=== PATIENT | female | born 1990 | race Caucasian/White ===

== ENCOUNTER 2017-07-04 08:17 | Emergency (ER) | payer MEDICAID ==
[2017-07-04] MEDS: DIPHENHYDRAMINE 50 MG INJ IV (09:10)
[2017-07-04] MEDS: KETOROLAC 15 MG INJ IV (09:10)
[2017-07-04] MEDS: METOCLOPRAMIDE 10 MG INJ IV (09:10)
[2017-07-04] MEDS: SOD CHLORIDE 0.9% 1,000 ML IV (09:10)
[2017-07-04 09:20] LABS: ADD MAN DIFF? NO
[2017-07-04 09:24] LABS: WHITE BLOOD COUNT 13.3 10^3/ul (4.8-10.8)
[2017-07-04 09:24] LABS: BASOPHILS % 0.3 % (0.0-2.0); EOSINOPHILS # 0.5 10^3/ul (0.0-0.5); EOSINOPHILS % 3.6 % (0.0-7.0); HEMATOCRIT 40.6 % (37.0-47.0); HEMOGLOBIN 13.9 g/dl (12.0-16.0); LYMPHOCYTES # 3.1 10^3/ul (0.8-2.9); LYMPHOCYTES % 23.3 % (15.0-51.0); MEAN CORPUSCULAR HEMOGLOBIN 28.8 pg (29.0-33.0); MEAN CORPUSCULAR HGB CONC 34.2 g/dl (32.0-37.0); MEAN CORPUSCULAR VOLUME 84.2 fl (82.0-101.0); MEAN PLATELET VOLUME 8.1 fl (7.4-10.4); MONOCYTE # 0.9 10^3/ul (0.3-0.9); NEUTROPHIL # 8.7 10^3/ul (1.6-7.5); NEUTROPHILS % 65.5 % (39.0-77.0); PLATELET COUNT 456 10^3/UL (140-415); RED BLOOD COUNT 4.82 10^6/ul (4.20-5.40); RED CELL DISTRIBUTION WIDTH 12.1 % (11.5-14.5)
[2017-07-04 09:40] LABS: ADD UMIC YES; UR ASCORBIC ACID NEGATIVE (NEGATIVE); UR BACTERIA FEW /HPF (NONE SEEN); UR BILIRUBIN (Dip) NEGATIVE (NEGATIVE); UR BLOOD (Dip) 2+ mg/dL (NEGATIVE); UR CLARITY CLOUDY (CLEAR); UR COLOR YELLOW (YELLOW); UR GLUCOSE (Dip) NEGATIVE (NEGATIVE); UR KETONES (Dip) NEGATIVE (NEGATIVE); UR LEUKOCYTE ESTERASE (Dip) TRACE Leu/ul (NEGATIVE); UR NITRITE (Dip) NEGATIVE (NEGATIVE); UR RBC 2 /HPF (0-5); UR SPECIFIC GRAVITY (Dip) 1.006 (1.003-1.030); UR SQUAMOUS EPITHELIAL CELL MANY /HPF (FEW); UR TOTAL PROTEIN (Dip) NEGATIVE (NEGATIVE); UR UROBILINOGEN (Dip) NEGATIVE (NEGATIVE); UR WBC 5 /HPF (0-5)
[2017-07-04 09:43] LABS: ALANINE AMINOTRANSFERASE 26 IU/L (13-69); ALBUMIN 4.8 g/dl (3.3-4.9); ALBUMIN/GLOBULIN RATIO 1.11; ALKALINE PHOSPHATASE 102 IU/L (42-121); ANION GAP 17 (8-16); ASPARTATE AMINO TRANSFERASE 21 IU/L (15-46); BILIRUBIN,INDIRECT 0.7 mg/dl (0-1.1); BILIRUBIN,TOTAL 0.7 mg/dl (0.2-1.3); BLOOD UREA NITROGEN 6 mg/dl (7-20); CALCIUM 9.4 mg/dl (8.4-10.2); CARBON DIOXIDE 29 mmol/L (21-31); CHLORIDE 105 mmol/L (97-110); CREATININE 0.52 mg/dl (0.44-1.00); GLUCOSE 104 mg/dl (70-220); LIPASE 206 U/L (23-300); POTASSIUM 3.8 mmol/L (3.5-5.1); SODIUM 147 mmol/L (135-144); TOTAL PROTEIN 9.1 g/dl (6.1-8.1)
== END 2017-07-04 10:25 | disposition home or self-care (01) ==
LOC: FTE 08:17
DX: R51 Headache (principal); J06.9 Acute upper respiratory infection, unspecified; R10.9 Unspecified abdominal pain
CPT/HCPCS: 36415; 76705; 80053; 81001; 83690; 85025; 96374; 96375; 99285-25